=== PATIENT | female | born 1970 | race Hispanic/Latino ===

== ENCOUNTER → 2018-03-11 | Outpatient (CLI) | payer OTHER | END | disposition home or self-care (01) | LOC: RAH 08:27 | PROVIDERS: ATTEND Nurse Practitioner Family | DX: Z12.31 Encounter for screening mammogram for malignant neoplasm of breast (principal) | CPT/HCPCS: 77067 ==

== ENCOUNTER 2018-09-29 01:02 | Emergency (ER) | payer OTHER ==
[2018-09-29] MEDS ORDERED: KETOROLAC TROMETHAMINE 60 MG/2 ML VIAL ONE (01:46)
[2018-09-29] MEDS ORDERED: HYDROXYZINE HCL 25 MG TABLET ONE (01:46)
[2018-09-29] MEDS ORDERED: ORPHENADRINE CITRATE 30 MG/ML ML ONE (01:46)
[2018-09-29] MEDS ORDERED: LIDOCAINE 5% TOPICAL PATCH TP ONE (01:47)
== END 2018-09-29 02:17 | disposition home or self-care (01) ==
LOC: EDH 01:02
DX: M54.6 Pain in thoracic spine (principal); M62.838 Other muscle spasm; Z90.710 Acquired absence of both cervix and uterus; Z98.890 Other specified postprocedural states
CPT/HCPCS: 96372 ×2; 99284; J1885; J2360

== ENCOUNTER 2023-07-26 07:06 | Emergency (ER) | payer BC, OTHER ==
[~2023-07-26] VITALS: Ht 152.4 cm; Wt 78.5 kg
[2023-07-26 07:07] VITALS: BP 142/78; PULSE 69; RESP 14; O2SAT 97
[2023-07-26 07:40] LABS: APPEARANCE,URINE CLEAR (CLEAR); BILIRUBIN,URINE NEGATIVE (NEGATIVE); COLOR,URINE YELLOW (YELLOW); GLUCOSE, URINE (UA) NEGATIVE (NEGATIVE); KETONES,URINE NEGATIVE (NEGATIVE); LEUKOCYTE ESTERASE ,URINE NEGATIVE Leu/uL (NEGATIVE); NITRATE,URINE NEGATIVE (NEGATIVE); OCCULT BLOOD,URINE NEGATIVE (NEGATIVE); PROTEIN,URINE 30 mg/dL (NEGATIVE); UROBILINOGEN,URINE 0.2 mg/dL (0.2-1.0)
[2023-07-26] MEDS ORDERED: ONDA8TAB12 PO (07:52)
[2023-07-26 07:56] LABS: ADD UA MICROSCOPIC YES
[2023-07-26 08:05] LABS: BACTERIA,URINE RARE /HPF (None Seen); MUCUS,URINE MOD LPF (None Seen); SQUAMOUS EPITHELIAL CELL,UR FEW /HPF (0-2)
[2023-07-26 08:06] LABS: HEMATOCRIT 40.3 % (36-48); MEAN CORPUSCULAR HEMOGLOBIN 30.8 pg (27.0-33.0); MEAN CORPUSCULAR HGB CONC 34.5 g/dL (32.0-36.0); MEAN CORPUSCULAR VOLUME 89.2 fL (79-99); RED BLOOD CELL COUNT(AUTO) 4.52 MIL/uL (4.00-5.50); RED CELL DISTRIBUTION WIDTH 12.2 % (11.0-15.5); WHITE BLOOD COUNT (AUTO) 4.8 K/uL (4.8-10.8)
[2023-07-26] MEDS: ONDANSETRON 4MG INJ IVP ONE (08:06)
[2023-07-26 08:30] LABS: BILIRUBIN,TOTAL 0.5 mg/dL (0.2-1.0); CREATININE 0.6 mg/dL (0.5-1.5); POTASSIUM 3.5 mmol/L (3.5-5.1); THYROID STIMULATING HORMONE 1.03 uIU/mL (0.36-3.74); TOTAL PROTEIN, SERUM 8.1 g/dL (6.0-8.3)
== END 2023-07-26 09:13 | disposition home or self-care (01) ==
LOC: EDH 07:06
DX: R11.2 Nausea with vomiting, unspecified (principal); F41.9 Anxiety disorder, unspecified; Z90.710 Acquired absence of both cervix and uterus
CPT/HCPCS: 99284; 96374; 84443; 80053; 83690; 85027; 81001; 36415; J2405